=== PATIENT | male | born 1975 | race Caucasian/White ===

== ENCOUNTER 2018-11-07 08:50 | Emergency (ER) | payer BC, OTHER ==
[2018-11-07 09:07] VITALS: BP 154/116
--- NOTE | 2018-11-07 09:13 | UC ---
General HPI - HPI Summary HPI Summary: 43-year-old male comes in with a chief complaint of sudden onset of difficulty breathing about 8:00 this morning. In clinic he is hyperventilating and he's having a hard time moving the muscles of his face and he's having flexion of the hands bilaterally. Patient does have a history of anxiety. - History of Current Complaint Stated Complaint: DIFFICULTY BREATHING Time Seen by Provider: 11/07/18 08:59 Pain Intensity: 0 - Allergy/Home Medications Allergies/Adverse Reactions: Allergies Allergy/AdvReac Type Severity Reaction Status Date / Time No Known Allergies Allergy Verified 11/07/18 09:02 Home Medications: Home Medications Hydrochlorothiazide TAB* [Hydrodiuril TAB*] 25 mg PO DAILY 11/07/18 [History Confirmed 11/07/18] Levothyroxine TAB* [Synthroid TAB*] 25 mcg PO DAILY 11/07/18 [History Confirmed 11/07/18] Metoprolol Succinate XL TAB* [Toprol XL TAB*] 50 mg PO DAILY 11/07/18 [History Confirmed 11/07/18] PARoxetine HCL TAB* [Paxil TAB*] 10 mg PO DAILY 11/07/18 [History Confirmed ] Simvastatin TAB(NF) [Zocor(NF)] 10 mg PO DAILY 11/07/18 [History Confirmed 11/07] hydrOXYzine HCL TAB* [Atarax 25 MG TAB*] 25 mg PO QID PRN 11/07/18 [History Confirmed 11/07/18] PMH/Surg Hx/FS Hx/Imm Hx Previously Healthy: Yes Endocrine History: Hypothyroidism, Dyslipidemia Cardiovascular History: Hypertension Psychological History: Anxiety - Surgical History Surgical History: None - Social History Alcohol Use: Rare Substance Use Type: None Smoking Status (MU): Never Smoked Tobacco Type: Smokeless Tobacco Review of Systems All Other Systems Reviewed And Are Negative: Yes Constitutional: Positive: Negative Skin: Positive: Other - SEE HPI Eyes: Positive: Negative ENT: Positive: Negative Respiratory: Positive: Shortness Of Breath Cardiovascular: Positive: Negative Gastrointestinal: Positive: Negative Motor: Positive: Decreased ROM Neurovascular: Positive: Negative Musculoskeletal: Positive: Negative Neurological: Positive: Other - SEE HPI Psychological: Positive: Anxious Is Patient Immunocompromised?: No Physical Exam Triage Information Reviewed: Yes Appearance: No Pain Distress, Well-Nourished, Other: - Patient is somewhat pale in appearance. Has a masklike face cannot smile. Symmetric. Both hands are contracted. This is also symmetric. Vital Signs: Initial Vital Signs Temp 98.5 F 11/07/18 09:02 Pulse 100 11/07/18 09:02 Resp 26 11/07/18 09:02 BP 154/116 11/07/18 09:02 Pulse Ox 100 11/07/18 09:02 Vital Signs Reviewed: Yes Eye Exam: Normal Eyes: Positive: Conjunctiva Clear Respiratory: Positive: Lungs clear, Respiratory distress Cardiovascular: Positive: Tachycardia Musculoskeletal: Positive: Other: - Both hands contracted Neurological: Positive: Other: - Mask like facies. Both hands contracted Psychological: Positive: Other: - Anxious Skin: Positive: Other - Pale Diagnostics - EKG Cardiac Rate: NL - AT 0902 Cardiac Rhythm: Sinus: Normal - 88BPM Ectopy: None ST Segment: Normal Course/Dx - Course Course Of Treatment: In clinic nursing was able to get the patient to calm down some and his breathing improved and his contractures minimized. He was sent to the [place] emergency department by ambulance. - Diagnoses Provider Diagnosis: Shortness of breath Discharge - Sign-Out/Discharge Documenting (check all that apply): Patient Departure All imaging exams completed and their final reports reviewed: No Studies - Discharge Plan Condition: Stable Disposition: TRANS HIGHER LVL OF CARE FAC Referrals: Gem Lopez NP [Primary Care Provider] - - Billing Disposition and Condition Condition: STABLE Disposition: Trans Higher Lvl of Care Fac
== END 2018-11-07 09:13 | disposition short-term general hospital (02) ==
LOC: UCCORT 08:50
DX: R06.02 Shortness of breath (principal); E03.9 Hypothyroidism, unspecified; E78.5 Hyperlipidemia, unspecified; I10 Essential (primary) hypertension; F41.9 Anxiety disorder, unspecified
CPT/HCPCS: 93005; 99213; G0463

== ENCOUNTER 2018-12-17 11:31 | Emergency (ER) | payer OTHER ==
[2018-12-17 12:36] VITALS: BP 154/118
--- NOTE | 2018-12-17 13:50 | UC ---
Skin Complaint HPI - HPI Summary HPI Summary: 43-year-old male presents with complaints of sores to both his feet that he is concerned have become infected. States for 3-4 weeks he has had multiple insect bites to both legs. He is unsure of what bit him. States the bites have improved to his upper legs however has been persistent to the bilateral lower legs and feet. Reports he was evaluated for this by his PCP approximately 2 weeks ago. States approximately 3-4 days ago started developing sores to the lateral aspect of both his feet that have started to become red and swollen. He has noted some drainage from the wounds. Denies fever or chills. - History of Current Complaint Chief Complaint: UCSkin Time Seen by Provider: 12/17/18 13:41 Stated Complaint: BILATERAL FOOT SKIN COMPLAINT Hx Obtained From: Patient Pain Intensity: 5 - Allergy/Home Medications Allergies/Adverse Reactions: Allergies Allergy/AdvReac Type Severity Reaction Status Date / Time No Known Allergies Allergy Verified 12/17/18 12:37 Home Medications: Home Medications Sertraline* [Zoloft*] 25 mg PO DAILY 12/17/18 [History Confirmed 12/17/18] PMH/Surg Hx/FS Hx/Imm Hx Endocrine History: Thyroid Disease, Dyslipidemia Cardiovascular History: Hypertension - Surgical History Surgical History: None - Family History Known Family History: Positive: Non-Contributory - Social History Occupation: Employed Full-time Lives: With Family Alcohol Use: Rare Substance Use Type: None Smoking Status (MU): Never Smoked Tobacco Type: Smokeless Tobacco Review of Systems All Other Systems Reviewed And Are Negative: Yes Constitutional: Negative: Fever, Chills Skin: Positive: Other - See HPI Respiratory: Positive: Negative Cardiovascular: Positive: Negative Gastrointestinal: Positive: Negative Genitourinary: Positive: Negative Musculoskeletal: Positive: Negative Neurological: Positive: Negative Is Patient Immunocompromised?: No Physical Exam - Summary Physical Exam Summary: GENERAL APPEARANCE: Well developed, well nourished, alert and cooperative, and appears to be in no acute distress. CARDIAC: Normal S1 and S2. No S3, S4 or murmurs. Rhythm is regular. There is no peripheral edema, cyanosis or pallor. Extremities are warm and well perfused. Capillary refill is less than 2 seconds. Peripheral pulses intact. LUNGS: Clear to auscultation without rales, rhonchi, wheezing or diminished breath sounds. ABDOMEN: Positive bowel sounds. Soft, nondistended, nontender. No guarding or rebound. No masses or hepatosplenomegally. MUSKULOSKELETAL: ROM intact to all extremities. No joint erythema or tenderness. Normal muscular development. Normal gait. EXTREMITIES: Multiple puctate erythematous lesions with crusting to the bilateral lower extremities and feet. 1 cm ulceration to the right lateral foot with erythema of the surrounding tissue extending approximately 1.5 cm from the wound margin. There is also a 1.5 cm and 1 cm ulceration to the lateral left foot with erythema of the surrounding tissue extending approximately 2 cm from the wound margins. No purulent drainage noted. SKIN: Skin normal color, texture and turgor. Triage Information Reviewed: Yes Vital Signs: Initial Vital Signs Temp 98.5 F 12/17/18 12:30 Pulse 68 12/17/18 12:30 Resp 16 12/17/18 12:30 BP 154/118 12/17/18 12:30 Pulse Ox 100 12/17/18 12:30 Vital Signs Reviewed: Yes Images Feet (Multiple View): 1 - 1 cm ulceration 2 - 1.5 cm ulceration 3 - 1 cm ulceration Course/Dx - Course Course Of Treatment: 43-year-old male presents with complaints of sores to both his feet that he is concerned have become infected. States for 3-4 weeks he has had multiple insect bites to both legs. He is unsure of what bit him. States the bites have improved to his upper legs however has been persistent to the bilateral lower legs and feet. Reports he was evaluated for this by his PCP approximately 2 weeks ago. States approximately 3-4 days ago started developing sores to the lateral aspect of both his feet that have started to become red and swollen. He has noted some drainage from the wounds. Denies fever or chills. Afebrile. Hypertensive otherwise VSS stable. Patient had multiple puctate erythematous lesions with crusting to the bilateral lower extremities and feet. 1 cm ulceration to the right lateral foot with erythema of the surrounding tissue extending approximately 1.5 cm from the wound margin. There is also a 1.5 cm and 1 cm ulceration to the lateral left foot with erythema of the surrounding tissue extending approximately 2 cm from the wound margins. No purulent drainage noted. Discussed with patient that I am concerned for infection of the wounds. Will treat with Bactrim DS 1 tab twice daily for 7 days. Recommending wound cleansing twice daily with mild soap and water followed by mupirocin ointment and dressing. He is to follow up with his PCP in 3 days for wound check. Anticipatory guidance and warning symptoms reviewed with the patient. Verbalizes understanding and agrees with POC. - Differential Diagnoses - Skin Complaint Differential Diagnoses: Cellulitis, Local Allergic Reaction, MRSA - Diagnoses Provider Diagnosis: Insect bite of lower limb, Wound infection Discharge ED - Sign-Out/Discharge Documenting (check all that apply): Patient Departure All imaging exams completed and their final reports reviewed: No Studies - Discharge Plan Condition: Stable Disposition: HOME Prescriptions: Mupirocin 2% OINT* [Bactroban 2 % Oint*] 1 applic TOPICAL BID #1 tube Sulfamethox/Trimethoprim DS* [Bactrim DS 800/160 TAB*] 1 tab PO BID #14 tab Patient Education Materials: Wound Infection (ED) Referrals: Becca Fuentes [Primary Care Provider] - 3 Days Additional Instructions: You have wounds on both feet that appear to be infected. We will start you on an oral antibiotic and give you an antibiotic ointment to use. Start Bactrim DS 1 tab twice daily for 7 days. Clean the wound with a mild soap and water at least twice a day. Apply mupirocin ointment and cover with a bandage. This should be changed at least twice a day or any time the dressing becomes wet or soiled. Use acetaminophen (Tylenol) or ibuprofen (Advil, Motrin) according to directions as needed for pain. Follow up with your primary care provider in 3-5 days for a wound check. Watch for signs of infection including fever greater than 100.5 F, severe pain not managed with pain medication, redness that spreads, or swelling of the legs or feet. Seek immediate medical attention in the emergency room should any of these occur. - Billing Disposition and Condition Condition: STABLE Disposition: Home
== END 2018-12-17 14:07 | disposition home or self-care (01) ==
LOC: UCCORT 11:31
DX: S90.862A Insect bite (nonvenomous), left foot, initial encounter (principal); S90.861A Insect bite (nonvenomous), right foot, initial encounter; L08.9 Local infection of the skin and subcutaneous tissue, unspecified; W57.XXXA Bitten or stung by nonvenomous insect and other nonvenomous arthropods, initial encounter; Y92.9 Unspecified place or not applicable; I10 Essential (primary) hypertension
CPT/HCPCS: 99212; G0463